=== PATIENT | male | born 1995 | race Caucasian/White ===

== ENCOUNTER 2024-11-24 05:40 | Emergency (ER) | payer SELFPAY ==
[~2024-11-24] VITALS: Ht 170.2 cm; Wt 100.0 kg
[2024-11-24 05:50] VITALS: O2SAT 99
[2024-11-24] MEDS: IBUPROFEN 400MG TABLET PO ONE (07:39)
[2024-11-24] MEDS ORDERED: TOPUD PO (09:29)
[2024-11-24 09:41] VITALS: BP 127/73; PULSE 68; RESP 14; TEMP 36.9; O2SAT 100
== END 2024-11-24 09:44 | disposition home or self-care (01) ==
LOC: ER 05:40
DX: J02.9 Acute pharyngitis, unspecified (principal); Z20.822 Contact with and (suspected) exposure to COVID-19
CPT/HCPCS: 87070; 87426; 87430; 99283